=== PATIENT | male | born 1965 | race Caucasian/White ===

== ENCOUNTER 2017-09-23 10:15 | Emergency (ER) | payer SELFPAY ==
[~2017-09-23] VITALS: Ht 170.2 cm; Wt 75.0 kg
[2017-09-23 10:26] VITALS: BP 165/83; PULSE 106; RESP 17; TEMP 97.4; O2SAT 98
[2017-09-23 11:21] LABS: AUTOMATED NEUTROPHIL # 5.8 TH/MM3 (1.8-7.7); BASOPHIL % 0.6 % (0.0-2.0); EOSINOPHIL % 0.2 % (0.0-4.0); HEMATOCRIT 45.3 % (39.0-51.0); HEMOGLOBIN 15.9 GM/DL (13.0-17.0); LYMPH % 23.2 % (9.0-44.0); MEAN CELL VOLUME 97.5 FL (80.0-100.0); MEAN CORPUSCULAR HEMOGLOBIN 34.3 PG (27.0-34.0); MEAN CORPUSCULAR HGB CONC 35.2 % (32.0-36.0); MEAN PLATELET VOLUME 8.2 FL (7.0-11.0); MONO % 9.9 % (0.0-8.0); MONOCYTE # 0.9 TH/MM3 (0-0.9); NEUT % 66.1 % (16.0-70.0); PLATELET COUNT 254 TH/MM3 (150-450); RED BLOOD COUNT 4.65 MIL/MM3 (4.50-5.90); RED CELL DISTRIBUTION WIDTH 15.5 % (11.6-17.2); WHITE BLOOD COUNT 8.8 TH/MM3 (4.0-11.0)
[2017-09-23 11:39] LABS: ALBUMIN 3.9 GM/DL (3.4-5.0); ALT (GPT) 27 U/L (12-78); AST (GOT) 36 U/L (15-37); BICARBONATE 27.6 MEQ/L (21.0-32.0); BLOOD UREA NITROGEN 11 MG/DL (7-18); CHLORIDE 102 MEQ/L (98-107); CREATININE 0.82 MG/DL (0.60-1.30); GLOMERULAR FILTRATION RATE 99 ML/MIN (>89); GLUCOSE,RANDOM 96 MG/DL (74-106); SODIUM (NA) 137 MEQ/L (136-145)
[2017-09-23 11:41] LABS: ALKALINE PHOSPHATASE 62 U/L (45-117); TOTAL BILIRUBIN ADULT 0.5 MG/DL (0.2-1.0); TOTAL PROTEIN 7.6 GM/DL (6.4-8.2)
[2017-09-23 11:51] LABS: BILIRUBIN, URINE NEG (NEG); BLOOD, URINE NEG (NEG); GLUCOSE,URINE NEG (NEG); KETONE, URINE NEG (NEG); MUCUS URINE MANY /lpf (OCC); NITRITE,URINE NEG (NEG); SQUAMOUS EPITHELIAL CELL URINE 1 /hpf (0-5); TRICHOMONAS, URINE RARE; URINE COLOR YELLOW (YELLW/STRAW); URINE LEUKOCYTE ESTERASE NEG (NEG)
[2017-09-23] MEDS ORDERED: DICY10 PO (13:07)
[2017-09-23] MEDS ORDERED: ZOFR4TAB3 SL (13:07)
--- NOTE | 2017-09-23 13:16 | PD ---
HPI Chief Complaint: Abdominal Pain Time Seen by Provider: 12:45 Travel History International Travel<30 days: No Contact w/Intl Traveler<30days: No Traveled to known affect area: No History of Present Illness HPI 52-year-old male presents to the emergency room for evaluation of diffuse abdominal pain, nausea, vomiting, and diarrhea for the past 2-3 days. Patient reports associated chills but denies any objective fevers. States he stopped vomiting yesterday. He has been having continuous diarrhea. There is no blood in vomit or diarrhea. No sick contacts. Pain is constant, dull, and cramping. States occasionally it feels like somebody is stabbing him. Denies history of similar symptoms. Denies any chronic medical conditions or daily medications. Denies any recent antibiotic use. Patient drinks alcohol several times per week. He denies any urinary symptoms. PFSH Past Medical History Medical History: Denies Significant Hx Diminished Hearing: No Social History Alcohol Use: Yes (DAILY) Tobacco Use: Yes (1 PPD) Substance Use: No Allergies-Medications (Allergen,Severity, Reaction): Coded Allergies: No Known Allergies (Unverified Adverse Reaction, Unknown, 09/23/17) Reported Meds & Prescriptions Reported Meds & Active Scripts Active Bentyl (Dicyclomine HCl) 10 Mg Cap 20 Mg PO TID Zofran Odt (Ondansetron Odt) 4 Mg Tab 4 Mg SL Q8HR PRN Review of Systems Except as stated in HPI: all other systems reviewed are Neg Physical Exam Narrative GENERAL: Well-nourished, well-developed male in no acute distress. Afebrile. Ambulatory. SKIN: Focused skin assessment warm/dry. HEAD: Normocephalic. EYES: No scleral icterus. No injection or drainage. NECK: Supple, trachea midline. No JVD or lymphadenopathy. CARDIOVASCULAR: Regular rate and rhythm without murmurs, gallops, or rubs. RESPIRATORY: Breath sounds equal bilaterally. No accessory muscle use. GASTROINTESTINAL: Abdomen soft, nondistended. Mild to moderate diffuse tenderness to palpation of the abdomen. No rebound tenderness or guarding. Data Data Last Documented VS Vital Signs Date Time Temp Pulse Resp B/P (MAP) Pulse Ox O2 Delivery O2 Flow Rate FiO2 09/23/17 10:26 97.4 106 17 165/83 (110) 98 Orders Orders Complete Blood Count With Diff (09/23/17 10:29) Comprehensive Metabolic Panel (09/23/17 10:29) Urinalysis - C+S If Indicated (09/23/17 10:29) Iv Access Insert/Monitor (09/23/17 10:29) Oxygen Administration (09/23/17 10:29) Oximetry (09/23/17 10:29) Lipase (09/23/17 10:29) Labs Laboratory Tests Test 09/23/17 10:55 White Blood Count 8.8 TH/MM3 Red Blood Count 4.65 MIL/MM3 Hemoglobin 15.9 GM/DL Hematocrit 45.3 % Mean Corpuscular Volume 97.5 FL Mean Corpuscular Hemoglobin 34.3 PG Mean Corpuscular Hemoglobin Concent 35.2 % Red Cell Distribution Width 15.5 % Platelet Count 254 TH/MM3 Mean Platelet Volume 8.2 FL Neutrophils (%) (Auto) 66.1 % Lymphocytes (%) (Auto) 23.2 % Monocytes (%) (Auto) 9.9 % Eosinophils (%) (Auto) 0.2 % Basophils (%) (Auto) 0.6 % Neutrophils # (Auto) 5.8 TH/MM3 Lymphocytes # (Auto) 2.0 TH/MM3 Monocytes # (Auto) 0.9 TH/MM3 Eosinophils # (Auto) 0.0 TH/MM3 Basophils # (Auto) 0.0 TH/MM3 CBC Comment DIFF FINAL Differential Comment Urine Color YELLOW Urine Turbidity CLEAR Urine pH 7.0 Urine Specific [place] 1.030 Urine Protein 30 mg/dL Urine Glucose (UA) NEG mg/dL Urine Ketones NEG mg/dL Urine Occult Blood NEG Urine Nitrite NEG Urine Bilirubin NEG Urine Urobilinogen 2.0 MG/DL Urine Leukocyte Esterase NEG Urine RBC 1 /hpf Urine WBC 3 /hpf Urine Squamous Epithelial Cells 1 /hpf Urine Mucus MANY /lpf Urine Trichomonas RARE Microscopic Urinalysis Comment CULT NOT INDICATED Blood Urea Nitrogen 11 MG/DL Creatinine 0.82 MG/DL Random Glucose 96 MG/DL Total Protein 7.6 GM/DL Albumin 3.9 GM/DL Calcium Level 9.0 MG/DL Alkaline Phosphatase 62 U/L Aspartate Amino Transf (AST/SGOT) 36 U/L Alanine Aminotransferase (ALT/SGPT) 27 U/L Total Bilirubin 0.5 MG/DL Sodium Level 137 MEQ/L Potassium Level 4.0 MEQ/L Chloride Level 102 MEQ/L Carbon Dioxide Level 27.6 MEQ/L Anion Gap 7 MEQ/L Estimat Glomerular Filtration Rate 99 ML/MIN Lipase 178 U/L MDM Medical Decision Making Medical Screen Exam Complete: Yes Emergency Medical Condition: Yes Medical Record Reviewed: Yes Differential Diagnosis Gastroenteritis, diverticulitis, colitis, alcohol withdrawal Narrative Course 52-year-old male presents to the emergency room for evaluation of diffuse abdominal pain, nausea, vomiting, and diarrhea for the past 2-3 days. No objective fevers. He is afebrile and well-appearing in the emergency room. Vital signs stable. Physical exam reveals diffuse tenderness to palpation of the abdomen without guarding or rebound tenderness. I spoke to my attending physician, Dr. Boggs, who assessed the patient. At this time there is no indication for imaging. CBC and CMP are completely unremarkable. UA shows evidence of trichomonas. Patient will be treated with Flagyl in the emergency room. Discharge with prescriptions for Bentyl and Zofran. Patient told to follow-up with a primary care physician or return for worsening symptoms. He understands and agrees to plan. Diagnosis Primary Impression: Gastroenteritis Referrals: Primary Care Physician Additional Instructions: Rest and drink plenty of fluids. Take Zofran as directed, as needed for nausea. Take Bentyl as directed, as needed for abdominal cramps. Follow-up with a primary care physician. Return to the emergency room for worsening symptoms. Scripts Dicyclomine (Bentyl) 10 Mg Cap 20 MG PO TID for Bowel Management, #20 CAP 0 Refills Prov: Valeria Boggs MD 09/23/17 Ondansetron Odt (Zofran Odt) 4 Mg Tab 4 MG SL Q8HR Y for Nausea/Vomiting, #12 TAB 0 Refills Prov: Valeria Boggs MD 09/23/17 Disposition: 01 DISCHARGE HOME Condition: Stable Amanda Hernandez Sep 23, 2017 13:16
[2017-09-23] MEDS ORDERED: metroNIDAZOLE 500 MG TAB PO ONE (13:30)
--- NOTE | 2017-09-23 13:35 | PD ---
Physical Exam Date Seen by Provider: Sep 23, 2017 Narrative This patient presents with a chief complaint of diffuse abdominal pain. He states that it seems to start in the lower abdomen and spread upward. He does have some associated nausea and vomiting. He denied any associated urinary tract symptoms such as dysuria, frequency or urgency. He has not been running a fever. On my abdominal exam, his abdomen is diffusely tender but there is no point tenderness and no guarding or rebound. Data Data Last Documented VS Vital Signs Date Time Temp Pulse Resp B/P (MAP) Pulse Ox O2 Delivery O2 Flow Rate FiO2 09/23/17 10:26 97.4 106 17 165/83 (110) 98 Orders Orders Complete Blood Count With Diff (09/23/17 10:29) Comprehensive Metabolic Panel (09/23/17 10:29) Urinalysis - C+S If Indicated (09/23/17 10:29) Iv Access Insert/Monitor (09/23/17 10:29) Oxygen Administration (09/23/17 10:29) Oximetry (09/23/17 10:29) Lipase (09/23/17 10:29) Ed Discharge Order (09/23/17 13:16) Metronidazole (Flagyl) (09/23/17 13:30) Labs Laboratory Tests Test 09/23/17 10:55 White Blood Count 8.8 TH/MM3 Red Blood Count 4.65 MIL/MM3 Hemoglobin 15.9 GM/DL Hematocrit 45.3 % Mean Corpuscular Volume 97.5 FL Mean Corpuscular Hemoglobin 34.3 PG Mean Corpuscular Hemoglobin Concent 35.2 % Red Cell Distribution Width 15.5 % Platelet Count 254 TH/MM3 Mean Platelet Volume 8.2 FL Neutrophils (%) (Auto) 66.1 % Lymphocytes (%) (Auto) 23.2 % Monocytes (%) (Auto) 9.9 % Eosinophils (%) (Auto) 0.2 % Basophils (%) (Auto) 0.6 % Neutrophils # (Auto) 5.8 TH/MM3 Lymphocytes # (Auto) 2.0 TH/MM3 Monocytes # (Auto) 0.9 TH/MM3 Eosinophils # (Auto) 0.0 TH/MM3 Basophils # (Auto) 0.0 TH/MM3 CBC Comment DIFF FINAL Differential Comment Urine Color YELLOW Urine Turbidity CLEAR Urine pH 7.0 Urine Specific [place] 1.030 Urine Protein 30 mg/dL Urine Glucose (UA) NEG mg/dL Urine Ketones NEG mg/dL Urine Occult Blood NEG Urine Nitrite NEG Urine Bilirubin NEG Urine Urobilinogen 2.0 MG/DL Urine Leukocyte Esterase NEG Urine RBC 1 /hpf Urine WBC 3 /hpf Urine Squamous Epithelial Cells 1 /hpf Urine Mucus MANY /lpf Urine Trichomonas RARE Microscopic Urinalysis Comment CULT NOT INDICATED Blood Urea Nitrogen 11 MG/DL Creatinine 0.82 MG/DL Random Glucose 96 MG/DL Total Protein 7.6 GM/DL Albumin 3.9 GM/DL Calcium Level 9.0 MG/DL Alkaline Phosphatase 62 U/L Aspartate Amino Transf (AST/SGOT) 36 U/L Alanine Aminotransferase (ALT/SGPT) 27 U/L Total Bilirubin 0.5 MG/DL Sodium Level 137 MEQ/L Potassium Level 4.0 MEQ/L Chloride Level 102 MEQ/L Carbon Dioxide Level 27.6 MEQ/L Anion Gap 7 MEQ/L Estimat Glomerular Filtration Rate 99 ML/MIN Lipase 178 U/L MDM Supervised Visit with PETE: Yes Narrative Course I, Dr. Boggs, have reviewed the advance practice practitioner's documentation and am in agreement, met with the patient face to face, made the diagnosis, and the medical decision making was done by me. *My assessment and Findings: CBC & BMP Diagram 09/23/17 10:55 Total Protein 7.6, Albumin 3.9, Calcium Level 9.0, Alkaline Phosphatase 62, Aspartate Amino Transf (AST/SGOT) 36, Alanine Aminotransferase (ALT/SGPT) 27, Total Bilirubin 0.5 UA shows trichomonas which will be treated prior to discharge. This patient's lab work is unremarkable. He does not have an acute abdomen on examination. Please see Amanda Hernandez PA-C's note for results of laboratory and radiographic evaluation, ED course, final diagnosis and disposition Diagnosis Primary Impression: Gastroenteritis Referrals: Primary Care Physician Additional Instruction: Rest and drink plenty of fluids. Take Zofran as directed, as needed for nausea. Take Bentyl as directed, as needed for abdominal cramps. Follow-up with a primary care physician. Return to the emergency room for worsening symptoms. Scripts Dicyclomine (Bentyl) 10 Mg Cap 20 MG PO TID for Bowel Management, #20 CAP 0 Refills Prov: Valeria Boggs MD 09/23/17 Ondansetron Odt (Zofran Odt) 4 Mg Tab 4 MG SL Q8HR Y for Nausea/Vomiting, #12 TAB 0 Refills Prov: Valeria Boggs MD 09/23/17 Disposition: 01 DISCHARGE HOME Condition: Stable Valeria Boggs MD Sep 23, 2017 13:35
== END 2017-09-23 14:22 | disposition home or self-care (01) ==
LOC: NEPD 10:15
DX: K52.9 Noninfective gastroenteritis and colitis, unspecified (principal); A59.9 Trichomoniasis, unspecified; F17.200 Nicotine dependence, unspecified, uncomplicated
CPT/HCPCS: 80053; 81001; 83690; 85025; 99283